=== PATIENT | male | born 1990 | race Caucasian/White ===

== ENCOUNTER 2023-11-27 17:51 | Emergency (ER) | payer MEDICAID ==
[~2023-11-27] VITALS: Ht 170.2 cm; Wt 77.2 kg
[~2023-11-27 17:51] MED LIST: AMLO-258 PO; DOCU50LI36 PO; PRED1TAB PO; TACR1CAP2 PO; VICOT PO
[2023-11-27 18:10] VITALS: BP 136/75; PULSE 63; RESP 18; TEMP 97.6
[2023-11-27] MEDS ORDERED: BACI28.410 TP (20:37)
[2023-11-27] MEDS ORDERED: CEPH-558 PO (20:37)
[2023-11-27] MEDS ORDERED: IBUP-1554 PO (20:37)
[2023-11-27] MEDS ORDERED: HYDR-4062 PO (20:37)
[2023-11-27] MEDS: ACETAMINOPHEN 500 MG TABLET PO ONE (20:51)
[2023-11-27] MEDS: IBUPROFEN 600 MG TABLET PO ONE (20:51)
[2023-11-27] MEDS: BACITRACIN 0.9 GM PACKET OINTMENT TP ONE (20:51)
[2023-11-27] MEDS: PERTUSS(ACELL),DIPH,TET/PF 0.5 ML SYRINGE [ADULT] IM. ONE (20:54)
[2023-11-27] MEDS: LIDOCAINE 1% 10 ML VIAL SQ ONE (21:02)
== END 2023-11-27 21:05 | disposition home or self-care (01) ==
LOC: EMS 17:51
DX: S61.212A Laceration without foreign body of right middle finger without damage to nail, initial encounter (principal); F17.210 Nicotine dependence, cigarettes, uncomplicated; Z98.890 Other specified postprocedural states; W19.XXXA Unspecified fall, initial encounter; Y93.89 Activity, other specified; Y92.89 Other specified places as the place of occurrence of the external cause; Y99.8 Other external cause status
CPT/HCPCS: 99283; 73140; 90715; 90471; 12001; J3490; 96372